=== PATIENT | male | born 1980 | race Caucasian/White ===

== ENCOUNTER 2018-07-07 17:39 | Emergency (ER) | payer OTHER ==
[2018-07-07] MEDS ORDERED: ONDANSETRON 4 MG/2 ML VIAL IVP STA (17:48)
[2018-07-07] MEDS ORDERED: SODIUM CHLORIDE 0.9% 1,000 ML IV ONE (17:48)
[2018-07-07] MEDS ORDERED: LOPERAMIDE 2 MG CAPSULE PO STA (17:48)
[2018-07-07] MEDS ORDERED: KETOROLAC 60 MG/2 ML VIAL IVP STA (17:48)
--- NOTE | 2018-07-07 17:52 | ED Physician Documentation ---
PD HPI NVD - Stated complaint Stated Complaint: VOMITING/DIARRHEA - Chief complaint Chief Complaint: Abd Pain - History obtained from History obtained from: Patient, Family - History of Present Illness Timing - onset: Yesterday (N/V/D since yesterday, Slight blood tinge to the diarrhea. also sick with diarrhea. Possible unmeasured fevers earlier today, he felt hot. No recent travel.) Review of Systems Constitutional: reports: Fever (?), Sweats. denies: Chills Cardiac: denies: Chest pain / pressure, Palpitations Respiratory: denies: Dyspnea, Cough GI: reports: Abdominal Pain, Nausea, Vomiting, Diarrhea : denies: Dysuria, Frequency PD PAST MEDICAL HISTORY - Present Medications Home Medications: Ambulatory Orders Medication Instructions Recorded Confirmed Ondansetron Odt [Zofran] 4 mg TL Q6H PRN #10 tablet 07/07/18 - Allergies Allergies/Adverse Reactions: Allergies Allergy/AdvReac Type Severity Reaction Status Date / Time cefazolin [From Ancef] AdvReac Nausea Verified 07/07/18 17:46 PD ED PE NORMAL - Vitals Vital signs reviewed: Yes - General General: Alert and oriented X 3, No acute distress - HEENT HEENT: Pharynx benign - Cardiac Cardiac: RRR, No murmur - Respiratory Respiratory: No respiratory distress, Clear bilaterally - Abdomen Abdomen: Normal bowel sounds, Soft, Non tender - Neuro Neuro: Alert and oriented X 3, Normal speech - Psych Psych: Normal mood, Normal affect Results - Vitals Vitals: Vital Signs - 24 hr 07/07/18 17:43 Temperature 36.7 C Heart Rate 82 Respiratory 18 Rate Blood Pressure 142/94 H O2 Saturation 97 Oxygen O2 Source Room air - Labs Labs: Laboratory Tests 07/07/18 07/07/18 18:00 18:00 WBC 5.9 RBC 4.94 Hgb 14.9 Hct 43.2 MCV 87.6 MCH 30.1 MCHC 34.4 RDW 12.7 Plt Count 225 MPV 6.5 L Neut # (Auto) 4.1 Lymph # (Auto) 1.3 L Clay # (Auto) 0.5 Eos # (Auto) 0.0 Baso # (Auto) 0.0 Absolute Nucleated RBC 0.00 Nucleated RBC % 0.0 Sodium 137 Potassium 3.3 L Chloride 97 L Carbon Dioxide 30 Anion Gap 10.0 BUN 17 Creatinine 1.1 Estimated GFR (MDRD) 74 L Glucose 100 Calcium 9.2 Total Bilirubin 1.8 H AST 36 ALT 57 Alkaline Phosphatase 40 L Total Protein 8.3 H Albumin 5.0 Globulin 3.3 Albumin/Globulin Ratio 1.5 Lipase 33 PD MEDICAL DECISION MAKING - ED course ED course: This is a 38-year-old gentleman with symptoms consistent with gastroenteritis. Lab work was unremarkable except for very mild hypokalemia which was repleted orally. Feeling better after treatment here with IV Zofran, fluids, Imodium and passed a p.o. challenge. Remained nontender on reexamination prior to discharge. Departure - Departure Disposition: Home, Self Care Clinical Impression: Gastroenteritis Condition: Good Record reviewed to determine appropriate education?: Yes Instructions: ED Gastroenteritis Viral Prescriptions: Ondansetron Odt [Zofran] 4 mg TL Q6H PRN #10 tablet PRN Reason: Nausea / Vomiting Comments: Imodium [id number] as needed for the diarrhea. Return for new or worsening symptoms or if not better in the next 24 hours or so. Your blood pressure was elevated today on check into the emergency department. This does not mean that you have hypertension, it is a common phenomenon to come to the emergency department and have elevated blood pressure. I recommend that you see your primary care physician within the week to have it rechecked when you are feeling better.
[2018-07-07 18:11] LABS: BASOPHILS % (AUTO) 0.2 %; EOSINOPHILS % (AUTO) 0.8 %; HGB - HEMOGLOBIN 14.9 g/dL (14.0-18.0); LYMPHOCYTES # (AUTO) 1.3 10^3/uL (1.5-3.5); LYMPHOCYTES % (AUTO) 21.8 %; MEAN CORPUSCULAR HEMOGLOBIN 30.1 pg (27.0-31.0); MEAN CORPUSCULAR HGB CONC 34.4 g/dL (32.0-36.0); MEAN CORPUSCULAR VOLUME 87.6 fL (80.0-94.0); MEAN PLATELET VOLUME 6.5 fL (7.4-11.4); MONOCYTES # (AUTO) 0.5 10^3/uL (0.0-1.0); MONOCYTES % (AUTO) 7.8 %; NEUTROPHILS # (AUTO) 4.1 10^3/uL (1.5-6.6); NEUTROPHILS % (AUTO) 69.4 %; PLT - PLATELET COUNT 225 10^3/uL (130-450); RED BLOOD COUNT 4.94 10^6/uL (4.70-6.10); RED CELL DISTRIBUTION WIDTH 12.7 % (12.0-15.0); WHITE BLOOD COUNT 5.9 x10^3/uL (4.8-10.8)
[2018-07-07 18:19] LABS: ALBUMIN/GLOBULIN RATIO 1.5 (1.0-2.2); BILIRUBIN,TOTAL 1.8 mg/dL (0.2-1.0); CALCIUM 9.2 mg/dL (8.5-10.3); CREATININE 1.1 mg/dL (0.6-1.2); TOTAL PROTEIN 8.3 g/dL (6.7-8.2)
[2018-07-07] MEDS ORDERED: POTASSIUM BICARB 25 MEQ TABLET PO STA (18:20)
[2018-07-07] MEDS ORDERED: ONDANSETRON ODT 4 MG Prepack 2 TL STA (19:06)
[2018-07-07 19:16] VITALS: BP 106/74
== END 2018-07-07 19:19 | disposition home or self-care (01) ==
LOC: ED 17:39
DX: K52.9 Noninfective gastroenteritis and colitis, unspecified (principal); R03.0 Elevated blood-pressure reading, without diagnosis of hypertension
CPT/HCPCS: 36415; 80053; 83690; 85025; 96374; 99283; A9270

== ENCOUNTER 2019-04-16 10:44 | Emergency (ER) | payer OTHER ==
--- NOTE | 2019-04-16 11:24 | XRAY Report ---
Reason: CP Procedure Date: 04/16/2019 Accession Number: [id number] / [id number] Procedure: XR - Chest 1 View X-Ray CPT Code: 28153 FULL RESULT: EXAM: CHEST RADIOGRAPHY EXAM DATE: 04/16/2019 11:17 AM. CLINICAL HISTORY: Chest pain with irregular heartbeat. COMPARISON: None. TECHNIQUE: 1 view. FINDINGS: Lungs/Pleura: No focal opacities evident. No pleural effusion. No pneumothorax. Mediastinum: Within exam limitations, the cardiomediastinal contour is normal. Other: None. IMPRESSION: Normal single view chest. RADIA
[2019-04-16 11:34] LABS: BASOPHILS % (AUTO) 0.4 %; EOSINOPHILS # (AUTO) 0.2 10^3/uL (0.0-0.7); EOSINOPHILS % (AUTO) 3.6 %; HGB - HEMOGLOBIN 13.9 g/dL (14.0-18.0); LYMPHOCYTES # (AUTO) 2.1 10^3/uL (1.5-3.5); LYMPHOCYTES % (AUTO) 31.2 %; MEAN CORPUSCULAR HEMOGLOBIN 29.8 pg (27.0-31.0); MEAN CORPUSCULAR HGB CONC 34.2 g/dL (32.0-36.0); MEAN CORPUSCULAR VOLUME 87.3 fL (80.0-94.0); MEAN PLATELET VOLUME 8.5 fL (7.4-11.4); MONOCYTES # (AUTO) 0.5 10^3/uL (0.0-1.0); MONOCYTES % (AUTO) 7.2 %; NEUTROPHILS # (AUTO) 3.9 10^3/uL (1.5-6.6); NEUTROPHILS % (AUTO) 57.2 %; PLT - PLATELET COUNT 234 10^3/uL (130-450); RED BLOOD COUNT 4.66 10^6/uL (4.70-6.10); WHITE BLOOD COUNT 6.8 x10^3/uL (4.8-10.8)
--- NOTE | 2019-04-16 11:56 | ED Physician Documentation ---
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 Patient states he always has occasional feeling of palpitations which are brief extra beats which then returned to normal, however over the past week or so he has felt like these occur all the time, at least hourly. They also will last longer than usual. He also has had some Dyspnea which seems to be unrelated to these ectopic beats, and will come and go. He denies leg swelling, fever cough. He will sometimes cough in order to improve the sensation of palpitations, this seems to help. He is not on any medications for his heart, has never had an KS. He does have an extensive family history of heart failure PD PAST MEDICAL HISTORY - Present Medications Home Medications: Ambulatory Orders Medication Instructions Recorded Confirmed Ondansetron Odt [Zofran] 4 mg TL Q6H PRN #10 tablet 07/07/18 - Allergies Allergies/Adverse Reactions: Allergies Allergy/AdvReac Type Severity Reaction Status Date / Time cefazolin [From Ancef] AdvReac Nausea Verified 07/07/18 17:46 PD ED PE NORMAL - Vitals Vital signs reviewed: Yes - General General: Alert and oriented X 3, No acute distress - HEENT HEENT: PERRL - Neck Neck: Supple, no meningeal sign - Cardiac Cardiac: RRR, No murmur - Respiratory Respiratory: Clear bilaterally - Abdomen Abdomen: Soft, Non distended - Derm Derm: Warm and dry - Extremities Extremities: No deformity - Neuro Neuro: Alert and oriented X 3 - Psych Psych: Normal mood, Normal affect Results - Vitals Vitals: Vital Signs - 24 hr 04/16/19 04/16/19 04/16/19 10:48 12:42 14:17 Temperature 36.1 C L 36.5 C Heart Rate 72 66 71 Respiratory 16 16 17 Rate Blood Pressure 133/79 H 130/91 H 121/80 O2 Saturation 98 98 99 Oxygen O2 Source Room air - EKG (time done) 10:54 Other comments: Other comments (EKG, my interpretation: Time 10: 54, rate 64, rhythm sinus, axis normal, there is no ST segment elevate, there is no abnormal T wave inversion. Intervals are within normal limits. No signs of Brugada syndrome, Ssuyw-Peeieyiho-Gxiob, or ARVD) - Labs Labs: Laboratory Tests 04/16/19 04/16/19 04/16/19 11:30 11:30 11:30 WBC 6.8 RBC 4.66 L Hgb 13.9 L Hct 40.7 L MCV 87.3 MCH 29.8 MCHC 34.2 RDW 12.0 Plt Count 234 MPV 8.5 Neut # (Auto) 3.9 Lymph # (Auto) 2.1 Kemper # (Auto) 0.5 Eos # (Auto) 0.2 Baso # (Auto) 0.0 Absolute Nucleated RBC 0.00 Nucleated RBC % 0.0 Sodium 140 Potassium 3.8 Chloride 104 Carbon Dioxide 29 Anion Gap 7.0 BUN 18 Creatinine 1.0 Estimated GFR (MDRD) 83 L Glucose 108 H Calcium 9.8 Total Bilirubin 1.3 H AST 16 ALT 27 Alkaline Phosphatase 38 L Troponin I High Sens < 2.3 L Total Protein 8.1 Albumin 4.8 Globulin 3.3 Albumin/Globulin Ratio 1.5 Lipase 41 - Rads (name of study) Chest XR Radiology: Other (Normal single view chest) PD MEDICAL DECISION MAKING - ED course Complexity details: considered differential (Dysrhythmia, PVC, electrolyte abnormality, ACS, pneumonia, pneumothorax, PE) ED course: On exam patient is well-appearing, vital signs are unremarkable. I reviewed his telemetry, and I do not see signs of dysrhythmia. I specifically reviewed the time from when patient states that he had one of these events of palpitations, he was in normal sinus rhythm during this time. CMP unremarkable, CBC shows a borderline anemia which is unlikely to cause of his symptoms. I did share this result with patient and he can follow up with his PCP on it. Chest x-ray shows no acute cardiopulmonary abnormality. EKG shows no signs of ischemia or dysrhythmia. High-sensitivity troponin is undetectable, and given that his symptoms have been ongoing for the last week, and he is currently chest pain- free, single troponin is sufficient. His HEART score is H=0, E=0, A=0, R=1, T=0, correlating to a low risk of major adverse cardiac event, I think patient is safe to follow-up as an outpatient on his chest discomfort. I performed a bedside [id number] ultrasound on the patient which showed a grossly normal ejection fraction and no pericardial effusion. I discussed with him that I do not see a clear cause of his symptoms, however given that he has been diagnosed with frequent ectopy in the past, I have a suspicion that he has PVCs or ectopy which is causing his symptoms at this time. I recommended he follow-up with his computer security manager Dr. Singh for further evaluation and treatment. If he develops new or concerning symptoms such as increasing chest pain, shortness of breath, lightheadedness or syncope, he should return to the emergency department immediately. Patient agreed with this plan and was discharged home. Departure - Departure Disposition: Home, Self Care Clinical Impression: Palpitations Condition: Good Instructions: Heart Palpitations, ED Chest Pain Atypical Unkn Cause Follow-Up: Thai Singh MD [Physician No Access] - Within 1 week (For follow up on symptoms) Comments: You were seen today for palpitations and shortness of breath. We did not see signs of abnormal rhythms on your EKG or on the manager monitoring. It may be that you are having ectopic beats/premature ventricular complexes which are causing your symptoms, given you have been diagnosed with this in the past. Please follow up with your computer security manager for futher work up. If you have worsening chest pain, shortness of breath, lightheadedness or fainting, or other concerning symptoms, please return to the emergency department.
[2019-04-16 11:57] LABS: ALBUMIN 4.8 g/dL (3.2-5.5); ALBUMIN/GLOBULIN RATIO 1.5 (1.0-2.2); BILIRUBIN,TOTAL 1.3 mg/dL (0.2-1.0); CALCIUM 9.8 mg/dL (8.5-10.3); TOTAL PROTEIN 8.1 g/dL (6.7-8.2)
[2019-04-16 14:18] VITALS: BP 121/80
== END 2019-04-16 14:35 | disposition home or self-care (01) ==
LOC: ED 10:44
DX: R00.2 Palpitations (principal); R07.89 Other chest pain; Z82.49 Family history of ischemic heart disease and other diseases of the circulatory system
CPT/HCPCS: 36415; 71045; 80053; 83690; 84484; 85025; 93005; 99281; 99284

== ENCOUNTER 2024-01-02 09:45 | Outpatient (CLI) | payer OTHER ==
--- NOTE | 2024-01-02 23:12 | XRAY Report ---
PROCEDURE: Knee 3V RT INDICATIONS: EFFUSION OF RIGHT KNEE TECHNIQUE: 3 views of the knee was obtained. COMPARISON: None FINDINGS: Bones: No fractures or dislocations. No suspicious bony lesions. Soft tissues: No knee joint effusion. No suspicious soft tissue calcifications or masses. IMPRESSION: Unremarkable knee radiographs. No evidence of joint effusion Reviewed by: Ron Kilgore MD on 01/02/2024 10:10 PM AKDT Approved by: Ron Kilgore MD on 01/02/2024 10:10 PM AKDT Station ID: [id number]
== END 2024-01-02 10:00 | disposition home or self-care (01) ==
LOC: DI.N 09:45
PROVIDERS: ATTEND Physician Assistant
DX: M25.461 Effusion, right knee (principal)